=== PATIENT | male | born 1975 | race Two or more races ===

== ENCOUNTER 2021-05-08 01:04 | Emergency (ER) | payer MEDICAID ==
[~2021-05-08] VITALS: Ht 157.5 cm; Wt 113.4 kg
[~2021-05-08 01:04] MED LIST: AMOX-277 PO; METR500T14 PO; ONDA-144 PO; PANT40TA2 PO
[2021-05-08 02:39] LABS: INR 1.05 (0.9-1.15); Partial Thromboplastin Time 29.8 sec (23.6-33.0)
[2021-05-08 02:41] LABS: Albumin 3.8 g/dL (3.4-5.0); Amylase 39 U/L (25-115); Anion Gap 7 (5-15); Blood Urea Nitrogen 21 mg/dL (7-18); Calcium 8.5 mg/dL (8.5-10.1); Carbon Dioxide 21 mmol/L (21-32); Chloride 112 mmol/L (98-107); Glucose 111 mg/dL (74-106); Lipase 83 U/L (73-393); Magnesium 2.4 mg/dL (1.6-2.6); Potassium 4.3 mmol/L (3.5-5.1); Sodium 140 mmol/L (136-145)
[2021-05-08 02:43] LABS: Basophils # (auto) 0 10 ^3/uL (0-0.2); Basophils % (auto) 0.6 % (0.0-2.0); Eosinophils # (auto) 0.3 10 ^3/uL (0-0.8); Eosinophils % (auto) 3.3 % (0.0-7.0); Hematocrit 48.5 % (41.0-53.0); Hemoglobin 16.8 g/dL (13.5-17.5); Lymphocytes # (auto) 1.4 10 ^3/uL (0.4-5.4); Lymphocytes % (auto) 17.1 % (10.0-50.0); Mean Corpuscular Hemoglobin 29.4 pg (28.0-32.0); Mean Corpuscular Hgb Conc. 34.6 g/dL (32.0-36.0); Mean Corpuscular Volume 84.8 fL (80.0-100.0); Monocytes # (auto) 0.5 10 ^3/uL (0-1.3); Monocytes % (auto) 5.7 % (0.0-12.0); Neutrophils # (auto) 5.9 10 ^3/uL (1.6-8.6); Neutrophils % (auto) 73.3 % (37.0-80.0); Red Blood Cells 5.72 10^6/uL (4.5-5.90); Red Cell Distribution Width 13.9 % (11.8-14.3)
[2021-05-08 02:48] LABS: Alanine Aminotransferase 83 U/L (16-61); Alkaline Phosphatase 72 U/L (45-117); Aspartate Aminotransferase 40 U/L (15-37); BUN/Creatinine Ratio 17.9; Bilirubin, Total 0.7 mg/dL (0.2-1.0); GFR African American 87 mL/min; GFR Non-African American 72 mL/min; Total Protein 8.3 g/dL (6.4-8.2)
[2021-05-08] MEDS ORDERED: SODIUM CHLORIDE 0.9% 1,000 ML IV ONE (06:45)
[2021-05-08 07:23] VITALS: BP 132/86
== END 2021-05-08 08:39 | disposition home or self-care (01) ==
LOC: EDBD 01:04 → ER 01:04
DX: M79.10 Myalgia, unspecified site (principal); R10.30 Lower abdominal pain, unspecified; M25.531 Pain in right wrist; R11.2 Nausea with vomiting, unspecified; Z79.2 Long term (current) use of antibiotics; Z79.899 Other long term (current) drug therapy
CPT/HCPCS: 36415; 71250; 73110; 74176; 80053; 82150; 83690; 83735; 84484; 85025; 85610; 85730; 93005; 96360; 99285; J7030